=== PATIENT | female | born 1980 | race Caucasian/White ===

== ENCOUNTER 2021-05-28 04:19 | Day surgery (SDC) | payer OTHER ==
[2021-05-24 15:47] VITALS: BMI 30.2
[2021-05-28] MEDS ORDERED: MIDAZOLAM HCL 2 MG/2 ML SINGLE DOSE VIAL ONE (10:25)
[2021-05-28] MEDS ORDERED: PROPOFOL 20 ML ONE ×2 (10:25→10:59)
[2021-05-28] MEDS ORDERED: IBUPROFEN 600 MG TABLET (FP) PO PRN (11:11)
[2021-05-28] MEDS ORDERED: ONDANSETRON 4 MG/2 ML VIAL IVPUSH PRN (11:11)
[2021-05-28] MEDS ORDERED: oxyCODONE HCL 5 MG TABLET PO PRN (11:11)
[2021-05-28] MEDS ORDERED: IBUPROFEN 800 MG/8 ML IJ IVPB PRN (11:11)
[2021-05-28] MEDS ORDERED: DEXAMETHASONE SOD PHOSPHATE 4 MG/1 ML VIAL ONE (11:14)
[2021-05-28] MEDS ORDERED: KETOROLAC TROMETHAMINE 30 MG/1 ML VIAL ONE (11:14)
[2021-05-28] MEDS ORDERED: ELECTROLYTE-148 SOLN 1,000 ML IV SCH (11:15)
[2021-05-28] MEDS ORDERED: oxyCODONE HCL 5 MG TABLET ONE (11:37)
[2021-05-28 14:03] VITALS: BP 121/56; PULSE 65; TEMP 98.4
== END 2021-05-28 14:11 | disposition home or self-care (01) ==
LOC: JASU-SURG 04:19
PROVIDERS: ATTEND Obstetrics & Gynecology
PROC: 0UBC7ZX Excision of Cervix, Via Natural or Artificial Opening, Diagnostic (ICD-10-PCS; principal; 2021-05-28 10:00)
DX: N87.9 Dysplasia of cervix uteri, unspecified (principal)
CPT/HCPCS: 81025; 88305-TC